=== PATIENT | female | born 1990 | race Caucasian/White ===

== ENCOUNTER → 2019-02-15 | Outpatient (REF) | payer OTHER, MEDICAID | LOC: M LAB REF 17:17 → MERGE 17:17 | PROVIDERS: ATTEND Advanced Practice Midwife | DX: Z34.01 Encounter for supervision of normal first pregnancy, first trimester (principal); Z3A.00 Weeks of gestation of pregnancy not specified ==

== ENCOUNTER → 2019-06-08 | Outpatient (CLI) | payer OTHER ==
[2019-06-08 13:04] LABS: HEMATOCRIT 35.5 % (36.0-47.0); HEMOGLOBIN 11.8 g/dl (12.0-15.5); MEAN CORPUSCULAR HEMOGLOBIN 31.6 pg (27.0-33.0); MEAN CORPUSCULAR HGB CONC 33.2 g/dl (32.0-36.5); MEAN CORPUSCULAR VOLUME 94.9 fl (80.0-96.0); PLATELET COUNT, AUTOMATED 284 10^3/uL (150-450); RED BLOOD COUNT 3.74 10^6/uL (4.00-5.40); WHITE BLOOD COUNT 13.1 10^3/uL (4.0-10.0)
== END ==
LOC: M PLALAB 08:07
PROVIDERS: ATTEND Advanced Practice Midwife
DX: Z36.89 Encounter for other specified antenatal screening (principal)

== ENCOUNTER → 2019-06-15 | Outpatient (CLI) | payer OTHER | LOC: M LAB 07:45 | PROVIDERS: ATTEND Advanced Practice Midwife | DX: Z34.93 Encounter for supervision of normal pregnancy, unspecified, third trimester (principal); Z36.89 Encounter for other specified antenatal screening ==

== ENCOUNTER → 2019-08-13 | Outpatient (REF) | payer OTHER ==
[~2019-08-13] MED LIST: CETI10CA2 PO; CLOB0.0548 TOP; PRENTAB9 PO; PROAAER10 INH
[2019-08-13 17:49] LABS: HEMATOCRIT 37.8 % (36.0-47.0); HEMOGLOBIN 12.8 g/dl (12.0-15.5); MEAN CORPUSCULAR HEMOGLOBIN 31.6 pg (27.0-33.0); MEAN CORPUSCULAR HGB CONC 33.9 g/dl (32.0-36.5); MEAN CORPUSCULAR VOLUME 93.3 fl (80.0-96.0); PLATELET COUNT, AUTOMATED 270 10^3/uL (150-450); RED BLOOD COUNT 4.05 10^6/uL (4.00-5.40)
[2019-08-13 18:14] LABS: CREATININE,RANDOM URINE 29.5 MG/DL; TOTAL PROTEIN,RANDOM URINE 7.5 MG/DL (0.0-12.0)
[2019-08-13 18:16] LABS: ALT/SGPT 18 U/L (12-78); BILIRUBIN,TOTAL 0.2 MG/DL (0.2-1.0); CREATININE FOR GFR 0.51 MG/DL (0.55-1.30); GLOMERULAR FILTRATION RATE > 60.0 (>60); LDH LACTATE DEHYDROGENASE 222 U/L (84-246); URIC ACID 4.6 MG/DL (2.6-6.0)
== END ==
LOC: M PLALAB 12:30
PROVIDERS: ATTEND Advanced Practice Midwife
DX: O14.93 Unspecified pre-eclampsia, third trimester (principal)

== ENCOUNTER 2019-08-16 14:47 | Outpatient (CLI) | payer OTHER ==
[~2019-08-16] VITALS: Ht 157.5 cm; Wt 100.2 kg
[2019-08-16 15:06] VITALS: BP 120/74
[2019-08-16] MEDS ORDERED: PROAAER10 INH (15:18)
[2019-08-16] MEDS ORDERED: CETI10CA2 PO (15:18)
[2019-08-16] MEDS ORDERED: PRENTAB9 PO (15:18)
[2019-08-16] MEDS ORDERED: CLOB0.0548 TOP (15:18)
[2019-08-16 15:29] VITALS: BP 139/86
[2019-08-16 15:40] VITALS: BP 125/76
[2019-08-16 15:55] VITALS: BP 115/71
[2019-08-16 16:05] LABS: CREATININE,RANDOM URINE 55.3 MG/DL; TOTAL PROTEIN,RANDOM URINE 15.8 MG/DL (0.0-12.0)
[2019-08-16 16:11] VITALS: BP 117/73
[2019-08-16 16:20] LABS: HEMATOCRIT 35.9 % (36.0-47.0); HEMOGLOBIN 12.2 g/dl (12.0-15.5); MEAN CORPUSCULAR HEMOGLOBIN 31.1 pg (27.0-33.0); MEAN CORPUSCULAR VOLUME 91.6 fl (80.0-96.0); PLATELET COUNT, AUTOMATED 244 10^3/uL (150-450); RED BLOOD COUNT 3.92 10^6/uL (4.00-5.40); WHITE BLOOD COUNT 14.2 10^3/uL (4.0-10.0)
[2019-08-16 16:28] VITALS: BP 122/75
[2019-08-16 16:43] LABS: ALT/SGPT 16 U/L (12-78); BILIRUBIN,TOTAL 0.1 MG/DL (0.2-1.0); CREATININE FOR GFR 0.47 MG/DL (0.55-1.30); GLOMERULAR FILTRATION RATE > 60.0 (>60); LDH LACTATE DEHYDROGENASE 191 U/L (84-246); URIC ACID 5.5 MG/DL (2.6-6.0)
--- NOTE | 2019-08-17 07:51 | IPNPDOC ---
Obstetrical Progress Note Date of Service Aug 16, 2019 Subjective Patient presents from the clinic for evaluation for elevated BPs. She has had elevated BP for the last two weeks. She denies visual changes, abd pain or headaches. She reports active movement. No vaginal bleeding, LOF or ctx. Objective Vital Signs Date Time Temp Pulse Resp B/P (MAP) Pulse Ox O2 Delivery O2 Flow Rate FiO2 08/16/19 16:28 96 122/75 (91) 08/16/19 15:11 97.5 16 96 Room Air Assessment Heart Rate (FHR): 130 Variability: Moderate Accelerations: Positive Decelerations: None Heart Rate Tracing: Category I Tocometer Contractions: No Assessment and Plan Age: 29 : 1 Weeks & Days 29yo G1 at 37wks with GHTN Reassuring status -home with labor and preeclampsia precautions and FKCs IOL 08/20/19 if remains stable Status: Reassuring LOVE BUNDY MD. Aug 17, 2019 07:51
== END 2019-08-16 18:47 | disposition home or self-care (01) ==
LOC: M LDO 14:47
PROVIDERS: ATTEND Obstetrics & Gynecology
DX: O13.3 Gestational [pregnancy-induced] hypertension without significant proteinuria, third trimester (principal); Z3A.37 37 weeks gestation of pregnancy

== ENCOUNTER 2019-08-22 10:30 | Inpatient (IN) | payer OTHER ==
[~2019-08-22] VITALS: Ht 157.5 cm; Wt 128.7 kg
[2019-08-22] VITALS (11 sets, daily range): BP systolic 116–135; BP diastolic 69–82
[2019-08-22] MEDS ORDERED: CLIN1GEL22 TOP (10:50)
[2019-08-22] MEDS ORDERED: CETI10CA2 PO (10:50)
[2019-08-22] MEDS ORDERED: CALC500C15 PO (10:50)
[2019-08-22] MEDS ORDERED: VALA1TAB5 (10:50)
[2019-08-22 11:31] LABS: HEMATOCRIT 36.7 % (36.0-47.0); HEMOGLOBIN 12.3 g/dl (12.0-15.5); MEAN CORPUSCULAR HEMOGLOBIN 30.6 pg (27.0-33.0); MEAN CORPUSCULAR HGB CONC 33.5 g/dl (32.0-36.5); MEAN CORPUSCULAR VOLUME 91.3 fl (80.0-96.0); PLATELET COUNT, AUTOMATED 262 10^3/uL (150-450); RED BLOOD COUNT 4.02 10^6/uL (4.00-5.40); WHITE BLOOD COUNT 13.9 10^3/uL (4.0-10.0)
[2019-08-22] MEDS: miSOPROStol 50 MCG 1/2 TAB (S0191) SL SCH ×3 (11:48→20:11)
[2019-08-22 11:56] LABS: ALT/SGPT 17 U/L (12-78); BILIRUBIN,TOTAL 0.2 MG/DL (0.2-1.0); CREATININE FOR GFR 0.52 MG/DL (0.55-1.30); GLOMERULAR FILTRATION RATE > 60.0 (>60); LDH LACTATE DEHYDROGENASE 302 U/L (84-246); URIC ACID 5.1 MG/DL (2.6-6.0)
--- NOTE | 2019-08-22 12:47 | HPE ---
DATE OF ADMISSION: 08/22/2019 29-year-old 1, para 0 female at 37-6/7 weeks gestation by 8 week ultrasound, estimated date of confinement (EDC) 09/06/2019, presents for labor induction. Indication for induction is gestational hypertension. She denies headaches or blurred vision. She denies contractions. COURSE: The patient initiated care at [facility]. Early blood pressures were normal. Starting at 36 weeks she had blood pressures 140s over 90s. This persisted for several visits in a row. She had a preeclampsia evaluation which was normal. MEDICAL HISTORY: 1. Mild asthma. 2. Allergic rhinitis. 3. History of chronic hypertension in the past. MEDICATIONS: No current medications. ALLERGIES: None. SURGICAL HISTORY: Raven teeth removal. SOCIAL HISTORY: The patient is . She denies cigarettes, alcohol or drug use. She lives in [place]. PHYSICAL EXAMINATION: Blood pressure 134/75, pulse 84. No apparent distress. Head and neck exam normal. Lungs clear. Heart regular rate and rhythm. Abdomen nontender, gravid. heart tones category 1. Sterile vaginal exam 1 cm, 50%, -2, posterior, moderate, vertex. Extremities nontender. LABORATORIES: Group B Streptococcus (GBS) negative. HIV negative. Hepatitis negative. ASSESSMENT: 29-year-old 1 at 37-6/7 weeks with gestational hypertension presents for labor induction. PLAN: Patient is admitted on 08/22/2019. Risks of induction were discussed.
[2019-08-23] VITALS (16 sets, daily range): BP systolic 106–140; BP diastolic 64–89
[2019-08-23] MEDS ORDERED: ACETAMINOPHEN 500 MG TAB PO ONE (00:30)
[2019-08-23] MEDS: miSOPROStol 50 MCG 1/2 TAB (S0191) SL SCH ×7 (00:41→23:45)
[2019-08-23] MEDS ORDERED: PROMETHAZINE INJ 25 MG/ML VIAL (J2550) IV ONE (01:15)
[2019-08-23] MEDS ORDERED: BUTORPHANOL 2 MG/ML INJ (J0595) IV ONE (01:15)
[2019-08-23] MEDS ORDERED: OXYTOCIN DRIP 30 UNITS in IV 1 EA IV SCH (08:45)
[2019-08-23] MEDS: LR 1,000 ML IV SCH ×2 (11:26→19:00)
[2019-08-23 19:05] LABS: HEMATOCRIT 35.2 % (36.0-47.0); MEAN CORPUSCULAR HEMOGLOBIN 31.2 pg (27.0-33.0); MEAN CORPUSCULAR HGB CONC 34.1 g/dl (32.0-36.5); MEAN CORPUSCULAR VOLUME 91.4 fl (80.0-96.0); PLATELET COUNT, AUTOMATED 238 10^3/uL (150-450); RED BLOOD COUNT 3.85 10^6/uL (4.00-5.40); WHITE BLOOD COUNT 17.1 10^3/uL (4.0-10.0)
--- NOTE | 2019-08-23 19:08 | IPNPDOC ---
Obstetrical Progress Note Date of Service Aug 23, 2019 Subjective Patient reports she can feel her contractions. Desires an epidural prior to AROM. Objective Vital Signs Date Time Temp Pulse Resp B/P (MAP) Pulse Ox O2 Delivery O2 Flow Rate FiO2 08/23/19 15:26 92 16 119/66 (83) 08/23/19 15:12 98.0 08/22/19 14:22 96 08/22/19 10:51 Room Air Assessment Heart Rate (FHR): 140 Variability: Moderate Accelerations: Positive Decelerations: None Heart Rate Tracing: Category I Tocometer Contractions: Yes Frequency: regular, other (2-4 minutes) Sterile Vaginal Examination Dilation: 4 cm Effacement (%): other (75%) Station: -2 Cervical Consistency: Soft Cervical Position: Middle Postion/Presentation: Cephalic presentation Assessment and Plan Age: 29 : 1 Term: 0 Pre-term: 0 Abortions: 0 Livin EGA at Admission: 37.6 Weeks & Days 38 weeks Status: Reassuring Group B Streptococcus: Negative Anticipate: Vaginal Delivery Additional Comments Will repeat CBC. Patient desires an epidural. After she receives her epidural we will consider AROM. IV Pitocin is at 14 mu/min. Continue with IV Pitocin and anesthesia will be consulted. JJ LEVI CNM Aug 23, 2019 19:08
[2019-08-23] MEDS ORDERED: FENTANYL 2MCG/ML ROPIVACAINE 0.2% IN 0.9% NACL 100ML IVBAG As Ordered ONE (19:10)
[2019-08-23] MEDS ORDERED: FENTANYL/ROPIVACAINE/NACL BAG 100 ML EPIDURAL SCH (20:45)
[2019-08-23] MEDS ORDERED: diphenhydrAMINE 50MG/ML VIAL (J1200) IV PRN (20:45)
[2019-08-23] MEDS ORDERED: EPIDURAL/PCA KEYS XX PRN (20:45)
[2019-08-23] MEDS ORDERED: NALOXONE INJ 0.4MG/1ML VIAL (J2310 PER 1MG) IV PRN (20:45)
[2019-08-23] MEDS ORDERED: EPIDURAL COMMENT XX SCH (20:45)
[2019-08-23] MEDS ORDERED: REFRIGERATOR IV KEYS XX PRN (20:45)
[2019-08-23] MEDS ORDERED: LACTATED RINGER'S 1000 ML IV PRN (20:45)
[2019-08-23] MEDS ORDERED: ePHEDrine SULFATE 25 MG/5 ML(5MG/ML) SYRINGE IV PRN (20:45)
[2019-08-23] MEDS ORDERED: ONDANSETRON 4MG/2ML VIAL IV PRN (20:45)
--- NOTE | 2019-08-23 23:39 | IPNPDOC ---
Text Note Date of Service The patient was seen on 08/23/19. NOTE S: Patient comfortable with epidural. O: Gravid, fetus vertex by Zana's maneuver SVE: /-3 FHR: 150 bpm, mod variability, accels no decels, Cat I tracing TOCO: Ctx q 5-7 min A: SIUP at 38.0 weeks EGA admitted for IOL for gHTN. P: GBS negative, no ABX required Epidural in place AROM with clear fluid Anticipate C/S as appropriate VS,Fishbone, I+O VS, Fishbone, I+O Laboratory Tests 08/23/19 18:52 Vital Signs Date Time Temp Pulse Resp B/P (MAP) Pulse Ox O2 Delivery O2 Flow Rate FiO2 08/23/19 15:26 92 16 119/66 (83) 08/23/19 15:12 98.0 08/22/19 14:22 96 08/22/19 10:51 Room Air GME ATTESTATION GME ATTESTATION My faculty preceptor for this patient encounter was physically present during the encounter and was fully available. All aspects of the patient interview, examination, medical decision making process, and medical care plan development were reviewed and approved by the faculty preceptor. The faculty preceptor is aware and concurs with the plan as stated in the body of this note and will attest to such by his/her cosignature. HANSA DOMINGUEZ D.O. Aug 23, 2019 23:38
[2019-08-24] VITALS (8 sets, daily range): BP systolic 106–137; BP diastolic 65–86
[2019-08-24] MEDS: LR 1,000 ML IV SCH ×3 (00:34→17:27)
[2019-08-24] MEDS: miSOPROStol 50 MCG 1/2 TAB (S0191) SL SCH (03:45)
--- NOTE | 2019-08-24 04:23 | IPNPDOC ---
Obstetrical Progress Note Date of Service Aug 24, 2019 Subjective Patient reports she is comfortable with her epidural. Objective Vital Signs Date Time Temp Pulse Resp B/P (MAP) Pulse Ox O2 Delivery O2 Flow Rate FiO2 08/23/19 15:26 92 16 119/66 (83) 08/23/19 15:12 98.0 08/22/19 14:22 96 08/22/19 10:51 Room Air Assessment Heart Rate (FHR): 135 Variability: Moderate Accelerations: Positive Decelerations: None Heart Rate Tracing: Category I Tocometer Contractions: Yes Frequency: regular, other (2-4 minutes) Sterile Vaginal Examination Dilation: 4 cm (4) Effacement (%): other (75%) Station: -2 Cervical Consistency: Soft Cervical Position: Anterior Postion/Presentation: Cephalic presentation Assessment and Plan Age: 29 Weeks & Days 38 weeks today Status: Reassuring Group B Streptococcus: Negative Additional Comments IUPC placed. Reviewed no change with patient. Will re-examine in 2 hours and if adequate contractions and no change we will proceed with a section. Patient verbalized understanding. JJ LEVI CNM Aug 24, 2019 04:23
[2019-08-24] MEDS ORDERED: BICITRA 30ML SOLN UDC As Ordered ONE (06:52)
[2019-08-24] MEDS ORDERED: ceFAZolin 2 GM/D5W 50 ML IV BAG (J0690 PER 500MG) As Ordered ONE (06:53)
[2019-08-24] MEDS ORDERED: BICITRA 30ML SOLN UDC PO ONE (07:00)
[2019-08-24] MEDS ORDERED: AZITHROMYCIN INJ 500 MG, VIAL MATE ADAPTER 1 EACH in D5W 250 ML IV ONE (07:00)
[2019-08-24] MEDS ORDERED: ceFAZolin SOD 2 GM in IV 1 EA IV ONE (07:00)
--- NOTE | 2019-08-24 07:05 | IPNPDOC ---
Obstetrical Progress Note Date of Service Aug 24, 2019 Subjective Patient is comfortable with her epidural. Objective Vital Signs Date Time Temp Pulse Resp B/P (MAP) Pulse Ox O2 Delivery O2 Flow Rate FiO2 08/23/19 15:26 92 16 119/66 (83) 08/23/19 15:12 98.0 08/22/19 14:22 96 08/22/19 10:51 Room Air Assessment Heart Rate (FHR): 140 Variability: Moderate Accelerations: Positive Decelerations: None Heart Rate Tracing: Category I Tocometer Contractions: Yes Frequency: regular Assessment and Plan Status: Reassuring Anticipate: Section Additional Comments No change in cervical examination. Reviewed recommendation of section due to no change after more than [address] Rainey notified of lack of cervical change and will be in to see patient. JJ LEVI CNM Aug 24, 2019 07:05
[2019-08-24] MEDS ORDERED: OXYTOCIN INJ 10 UNITS/ML VIAL (J2590) As Ordered ONE (07:07)
[2019-08-24] MEDS ORDERED: MORPHINE PRES-FREE INJ 10 MG/10 ML VIAL (J2274) As Ordered ONE (07:08)
[2019-08-24] MEDS ORDERED: LIDOCAINE 2% W/EPIN INJ 20ML **PRES FREE As Ordered ONE (07:12)
[2019-08-24] MEDS ORDERED: LIDOCAINE 1% MDV 20ML VIAL As Ordered ONE (08:00)
[2019-08-24] MEDS ORDERED: NALBUPHINE HCL 10 MG/ML AMP (J2300) IV PRN (08:03)
[2019-08-24] MEDS ORDERED: METOCLOPRAMIDE INJ 10MG/2ML VIAL (J2765 PER 1) IV PRN (08:03)
[2019-08-24] MEDS ORDERED: ONDANSETRON 4MG/2ML VIAL IV PRN ×2 (08:03→09:15)
[2019-08-24] MEDS ORDERED: diphenhydrAMINE 50MG/ML VIAL (J1200) IV PRN (08:03)
[2019-08-24] MEDS ORDERED: NALOXONE INJ 0.4MG/1ML VIAL (J2310 PER 1MG) IV PRN ×2 (08:03)
[2019-08-24] MEDS ORDERED: KETAMINE HCL 200 MG/20 ML VIAL As Ordered ONE (08:08)
[2019-08-24] MEDS ORDERED: MIDAZOLAM INJ 2MG/2ML VIAL (J2250 PER 1MG) As Ordered ONE (08:08)
[2019-08-24] MEDS ORDERED: KETOROLAC 60 MG/2 ML VIAL As Ordered ONE (08:30)
[2019-08-24] MEDS ORDERED: OXYTOCIN DRIP 30 UNITS in IV 1 EA IV SCH (08:40)
[2019-08-24] MEDS ORDERED: MEASLES,MUMPS,RUBELLA VACCINE INJ (MMR-II) (90707) SC SCH (08:45)
[2019-08-24] MEDS ORDERED: ONDANSETRON 4 MG TAB PO PRN (08:45)
[2019-08-24] MEDS ORDERED: RHOGAM 300 MCG (1500 IU) INJ (J2790) IM SCH (08:45)
[2019-08-24] MEDS ORDERED: DOCUSATE SODIUM 100 MG CAP PO PRN (08:45)
[2019-08-24] MEDS: PRENATAL VITAMINS CHEWABLE TABLET PO SCH (09:00)
[2019-08-24] MEDS ORDERED: OXYTOCIN 30 UNITS IN 0.9% NaCl 500ML IV BAG (J2590) As Ordered ONE (09:10)
[2019-08-24] MEDS ORDERED: fentaNYL 100 MCG/2 ML INJECTION (J3010) IV PRN (09:15)
[2019-08-24] MEDS ORDERED: LIDOCAINE 1% MDV 20ML VIAL SC ONE (09:15)
--- NOTE | 2019-08-24 09:22 | RO ---
DATE OF OPERATION: 08/24/2019 PREOPERATIVE DIAGNOSIS: 38 weeks, preeclampsia, arrest of dilation. POSTOPERATIVE DIAGNOSIS: 38 weeks, preeclampsia, arrest of dilation. PROCEDURE: Primary low transverse section. SURGEON: Hank Rainey MD MATERIAL EXPEDITER: Michaela Chapman CNM ANESTHESIA: Epidural plus local. ESTIMATED BLOOD LOSS: 500 mL. URINE OUTPUT: 150 mL. FINDINGS: 2850-gram or 6-pound 5-ounce female infant, scores 9 and 9. Occiput posterior with anterior asynclitism. Normal uterus, fallopian tubes, and ovaries. DESCRIPTION OF PROCEDURE: Operative summary: The patient taken to the operating room, where epidural anesthesia was found to be slightly inadequate on the right side. The patient received a total of 20 mL of 1% lidocaine injected into the subcutaneous and intramuscular tissue. A Pfannenstiel skin incision made with the scalpel and carried through to the fascia. The fascia was nicked and extended. The fascia was dissected off the rectus muscle. The peritoneal cavity was entered. The bladder flap was created. A Mobius retractor was placed. A curvilinear incision was made in the lower uterine segment. This was extended manually. Clear fluid was noted. The was delivered in the vertex position without difficulty. The cord was doubly clamped and cut. The infant was handed off to the awaiting nurses. The placenta was expressed. The uterus was closed with 0 Vicryl in a running locked fashion. A second imbricating layer of 0 Vicryl was placed. The peritoneum was closed with 2-0 Vicryl in a running fashion. The fascia was closed with 0 Vicryl. The deep layer was irrigated and closed with 2-0 chromic. The skin was closed with 4-0 Monocryl subcuticular sutures. Sponge, instrument, and needle counts were correct. Michaela Chapman CNM, assisted throughout the procedure. She was indispensable for the successful performance of the procedure. She helped create each layer of the incision. She helped deliver the fetus and close all subsequent layers.
[2019-08-24] MEDS: PERCOCET 5MG/325MG TAB PO PRN (10:42)
[2019-08-24] MEDS: KETOROLAC 30 MG/ML 1ML VIAL IV SCH ×2 (14:46→21:13)
[2019-08-25 02:30] VITALS: BP 111/72
[2019-08-25] MEDS: KETOROLAC 30 MG/ML 1ML VIAL IV SCH (03:02)
[2019-08-25 06:10] VITALS: BP 114/68
[2019-08-25] MEDS ORDERED: OXYC1TAB23 PO (07:00)
[2019-08-25] MEDS ORDERED: IBUP80TA PO (07:00)
--- NOTE | 2019-08-25 07:11 | DSES ---
DATE OF ADMISSION: 08/22/2019 DATE OF DISCHARGE: HISTORY: 29-year-old, (G) 1, para (P) 0, female at 37 and 6/7 weeks gestation who presented for labor induction with the indication of gestational hypertension. She denied headaches. HOSPITAL COURSE: The patient was admitted on 08/22/2019. She had induction initiated with misoprostol. She subsequently had a Cook catheter placed in her cervix. After a prolonged effort, she was diagnosed with arrest of dilation. On 08/24/2019, she underwent primary low transverse section for a 6 pound 5 ounce female infant. The procedure was uncomplicated. She had adequate return of bladder and bowel function. Her postoperative hemoglobin was stable. She was deemed stable for discharge on postoperative day #2. ADMISSION DIAGNOSIS: at 38 weeks. Hypertension. DISCHARGE DIAGNOSIS: Delivered. PROCEDURE: Primary low transverse section. DISPOSITION: Patient to followup with Dr. Rainey in 2 weeks. Instructions reviewed.
[2019-08-25 08:30] LABS: HEMATOCRIT 27.6 % (36.0-47.0); HEMOGLOBIN 9.4 g/dl (12.0-15.5); MEAN CORPUSCULAR HEMOGLOBIN 31.6 pg (27.0-33.0); MEAN CORPUSCULAR HGB CONC 34.1 g/dl (32.0-36.5); MEAN CORPUSCULAR VOLUME 92.9 fl (80.0-96.0); PLATELET COUNT, AUTOMATED 192 10^3/uL (150-450); RED BLOOD COUNT 2.97 10^6/uL (4.00-5.40); WHITE BLOOD COUNT 17.4 10^3/uL (4.0-10.0)
[2019-08-25] MEDS: PERCOCET 5MG/325MG TAB PO PRN ×3 (09:48→20:44)
[2019-08-25] MEDS: PRENATAL VITAMINS CHEWABLE TABLET PO SCH (09:48)
[2019-08-25] MEDS: IBUPROFEN 800 MG TAB PO SCH ×2 (10:03→18:36)
[2019-08-25 18:12] VITALS: BP 131/83
[2019-08-25 21:18] VITALS: BP 120/69
[2019-08-26] MEDS: IBUPROFEN 800 MG TAB PO SCH ×2 (03:05→11:21)
[2019-08-26 05:52] VITALS: BP 140/87
[2019-08-26] MEDS: PERCOCET 5MG/325MG TAB PO PRN (05:52)
--- NOTE | 2019-08-26 08:24 | DSES ---
DATE OF ADMISSION: 08/22/2019 DATE OF DISCHARGE: 08/26/2019 SURGEON: Dr. Hank Rainey DIAGNOSIS: Primary section, postop day #2, stable condition. HISTORY: Carson is 29-year-old 1, para 1-0-0-1 now who underwent induction of labor at 37-6/7 weeks due to gestational hypertension. HOSPITAL COURSE: She was admitted on 08/21. She had induction initiated with misoprostol, Cook's catheter to the cervix, IV Pitocin and after prolonged effort, she was diagnosed with arrest of dilation. She underwent a primary section on 08/24/2019. She delivered a 6 pounds 5 ounces female. The procedure was uncomplicated. Her bladder and bowel function has returned. Postoperative hemoglobin is stable. She has been deemed stable for discharge on postop day #2. PLAN: Reviewed discharge instructions that included breast care, incision care, yevgeniy care, pelvic rest, activity and lifting restrictions, danger signs to report, as well as access to her care provider. She is to follow up in 2 weeks for incision check at [facility], as well as an 8-week visit. All her questions answered and she desires discharge home. edited: 08/27/2019 [id number]
[2019-08-26] MEDS: PRENATAL VITAMINS CHEWABLE TABLET PO SCH (09:00)
== END 2019-08-26 13:20 | disposition home or self-care (01) | DRG 540 ==
LOC: M LDI 10:30 → M OBS 08-24 09:47
PROVIDERS: ADMIT Specialist; ATTEND Specialist
PROC: 3E033VJ Introduction of Other Hormone into Peripheral Vein, Percutaneous Approach (ICD-10-PCS; 2019-08-22)
PROC: 10D00Z1 Extraction of Products of Conception, Low, Open Approach (ICD-10-PCS; principal; 2019-08-24 07:30)
DX: O14.94 Unspecified pre-eclampsia, complicating childbirth (principal); O62.0 Primary inadequate contractions; Z37.0 Single live birth; Z3A.38 38 weeks gestation of pregnancy

== ENCOUNTER → 2020-10-18 | Outpatient (REF) | payer OTHER ==
[~2020-10-18] MED LIST changes: +CALC500C15 PO; +CLIN1GEL22 TOP; +IBUP80TA PO; +OXYC1TAB23 PO; +VALA1TAB5
== END ==
LOC: M SFHCWAGY 13:11
PROVIDERS: ATTEND Specialist
DX: Z01.419 Encounter for gynecological examination (general) (routine) without abnormal findings (principal)

== ENCOUNTER → 2021-07-17 | Outpatient (REF) | payer OTHER ==
[2021-07-17 15:56] LABS: BASO # 0.1 10^3/uL (0.0-0.2); BASO % 0.6 % (0.0-1.0); EOS # 0.1 10^3/uL (0.0-0.5); EOS % 1.4 % (0.0-3.0); HEMATOCRIT 41.2 % (36.0-47.0); HEMOGLOBIN 13.6 g/dl (12.0-15.5); LYMPH # 3.2 10^3/uL (1.5-5.0); LYMPH % 32.6 % (24.0-44.0); MEAN CORPUSCULAR HEMOGLOBIN 30.2 pg (27.0-33.0); MEAN CORPUSCULAR VOLUME 91.6 fl (80.0-96.0); MONO # 0.6 10^3/uL (0.0-0.8); MONO % 6.3 % (2.0-8.0); NEUTROPHILS # 5.7 10^3/uL (1.5-8.5); NEUTROPHILS % 58.8 % (36.0-66.0); PLATELET COUNT, AUTOMATED 295 10^3/uL (150-450); WHITE BLOOD COUNT 9.7 10^3/uL (4.0-10.0)
[2021-07-17 16:41] LABS: ALT/SGPT 29 U/L (12-78); BILIRUBIN,TOTAL 0.1 MG/DL (0.2-1.0); BLOOD UREA NITROGEN 12 MG/DL (7-18); CALCIUM LEVEL 8.3 MG/DL (8.5-10.1); CARBON DIOXIDE LEVEL 22 MEQ/L (21-32); CHLORIDE LEVEL 111 MEQ/L (98-107); CHOLESTEROL LEVEL 135 MG/DL (<200); CHOLESTEROL RISK RATIO 2.142 (<5); CREATININE FOR GFR 0.64 MG/DL (0.55-1.30); GLOMERULAR FILTRATION RATE > 60.0 (>60); GLUCOSE, FASTING 73 MG/DL (70-100); HDL CHOLESTEROL 63 MG/DL (>40); LDL CHOLESTEROL 57 MG/DL (<100); NON-HDL-C 72 MG/DL; POTASSIUM SERUM 4.4 MEQ/L (3.5-5.1); SODIUM LEVEL 139 MEQ/L (136-145); TOTAL 25(OH) VITAMIN D 15.1 NG/ML (30.0-100.0); TOTAL PROTEIN 6.8 GM/DL (6.4-8.2); TRIGLYCERIDES LEVEL 73 MG/DL (<150)
== END ==
LOC: M SFHCCAPE 07:17
PROVIDERS: ATTEND Physician Assistant
DX: Z00.00 Encounter for general adult medical examination without abnormal findings (principal)

== ENCOUNTER → 2022-01-23 | Outpatient (REF) | payer BC ==
[2022-01-23 18:43] LABS: BASO # 0.1 10^3/uL (0.0-0.2); BASO % 0.6 % (0.0-1.0); EOS # 0.3 10^3/uL (0.0-0.5); EOS % 2.9 % (0.0-3.0); HEMATOCRIT 42.5 % (36.0-47.0); LYMPH # 2.7 10^3/uL (1.5-5.0); LYMPH % 28.7 % (24.0-44.0); MEAN CORPUSCULAR HEMOGLOBIN 30.6 pg (27.0-33.0); MEAN CORPUSCULAR HGB CONC 32.9 g/dl (32.0-36.5); MEAN CORPUSCULAR VOLUME 92.8 fl (80.0-96.0); MONO # 0.4 10^3/uL (0.0-0.8); MONO % 4.7 % (2.0-8.0); NEUTROPHILS # 5.8 10^3/uL (1.5-8.5); NEUTROPHILS % 62.8 % (36.0-66.0); PLATELET COUNT, AUTOMATED 327 10^3/uL (150-450); RED BLOOD COUNT 4.58 10^6/uL (4.00-5.40); WHITE BLOOD COUNT 9.3 10^3/uL (4.0-10.0)
[2022-01-23 19:26] LABS: BLOOD UREA NITROGEN 15 MG/DL (7-18); CALCIUM LEVEL 8.8 MG/DL (8.5-10.1); CARBON DIOXIDE LEVEL 21 MEQ/L (21-32); CHLORIDE LEVEL 105 MEQ/L (98-107); CREATININE FOR GFR 0.67 MG/DL (0.55-1.30); GLOMERULAR FILTRATION RATE > 60.0 (>60); GLUCOSE, FASTING 78 MG/DL (70-100); POTASSIUM SERUM 4.4 MEQ/L (3.5-5.1); SODIUM LEVEL 134 MEQ/L (136-145)
[2022-01-23 20:05] LABS: APPEARANCE, URINE MANUAL CLEAR (CLEAR); COLOR, URINE MANUAL YELLOW (YELLOW)
[2022-01-23 20:08] LABS: BILIRUBIN, URINE MANUAL NEGATIVE (NEGATIVE); BLOOD URINE MANUAL POSITIVE (NEGATIVE); GLUCOSE, URINE (UA) MANUAL NEGATIVE (NEGATIVE); KETONE, URINE MANUAL NEGATIVE (NEGATIVE); LEUKOCYTE ESTERASE, URINE MAN NEGATIVE (NEGATIVE); NITRITE, URINE MANUAL NEGATIVE (NEGATIVE); PH,URINE MAN 6.5 UNITS (5.0 - 7.0); PROTEIN, URINE MANUAL NEGATIVE (NEGATIVE); SPECIFIC GRAVITY,URINE MANUAL 1.015 (1.002-1.035); UROBILINOGEN, URINE MANUAL NORMAL (NORMAL)
[2022-01-23 20:22] LABS: BACTERIA, URINE SMALL AMOUNT; HYALINE CAST, URINE NONE SEEN /lpf (0-1); MUCUS, URINE SMALL AMOUNT (NEGATIVE); SQUAMOUS EPITHELIAL CELL URINE SMALL AMOUNT /hpf (SMALL AMT); WBC, URINE 0-1 /hpf (0-3)
== END ==
LOC: M SFHCCAPE 08:44
PROVIDERS: ATTEND Physician Assistant
DX: R55 Syncope and collapse (principal)

== ENCOUNTER → 2022-02-19 | Outpatient (REF) | payer BC ==
[2022-02-19 18:20] LABS: APPEARANCE, URINE MANUAL CLEAR (CLEAR); BILIRUBIN, URINE MANUAL NEGATIVE (NEGATIVE); BLOOD URINE MANUAL NEGATIVE (NEGATIVE); COLOR, URINE MANUAL COLORLESS (YELLOW); GLUCOSE, URINE (UA) MANUAL NEGATIVE (NEGATIVE); KETONE, URINE MANUAL NEGATIVE (NEGATIVE); LEUKOCYTE ESTERASE, URINE MAN NEGATIVE (NEGATIVE); NITRITE, URINE MANUAL NEGATIVE (NEGATIVE); PROTEIN, URINE MANUAL NEGATIVE (NEGATIVE); SPECIFIC GRAVITY,URINE MANUAL 1.005 (1.002-1.035); UROBILINOGEN, URINE MANUAL NORMAL (NORMAL)
== END ==
LOC: M SFHCCAPE 11:25
PROVIDERS: ATTEND Physician Assistant
DX: R42 Dizziness and giddiness (principal)

== ENCOUNTER → 2022-07-29 | Outpatient (REF) | payer BC | LOC: M SFHCWAGY 13:06 | PROVIDERS: ATTEND Nurse Practitioner Family | DX: Z12.4 Encounter for screening for malignant neoplasm of cervix (principal) | CPT/HCPCS: 87624; G0123 ==

== ENCOUNTER 2023-01-06 09:58 | Day surgery (SDC) | payer BC ==
[~2023-01-06] VITALS: Ht 157.5 cm; Wt 83.0 kg
[~2023-01-06 09:58] MED LIST changes: +L-NO1TBD6; +LEXA1TAB PO; +LISI10TA22 PO
[2023-01-06 10:26] LABS: HEMATOCRIT 42.9 % (36.0-47.0); HEMOGLOBIN 14.2 g/dl (12.0-15.5); MEAN CORPUSCULAR HEMOGLOBIN 30.3 pg (27.0-33.0); MEAN CORPUSCULAR HGB CONC 33.1 g/dl (32.0-36.5); MEAN CORPUSCULAR VOLUME 91.5 fl (80.0-96.0); PLATELET COUNT, AUTOMATED 307 10^3/uL (150-450); RED BLOOD COUNT 4.69 10^6/uL (4.00-5.40); WHITE BLOOD COUNT 8.1 10^3/uL (4.0-10.0)
[2023-01-06] MEDS ORDERED: ROCURONIUM BROMIDE 50MG/5ML VIAL As Ordered ONE (13:06)
[2023-01-06] MEDS ORDERED: LIDOCAINE 2% 100MG/5ML SDV (FOR ANES.) As Ordered ONE (13:06)
[2023-01-06] MEDS ORDERED: fentaNYL 100 MCG/2 ML INJECTION As Ordered ONE (13:06)
[2023-01-06] MEDS ORDERED: ONDANSETRON 4MG 2ML VIAL As Ordered ONE (13:06)
[2023-01-06] MEDS ORDERED: MIDAZOLAM INJ 2MG/2ML VIAL As Ordered ONE (13:06)
[2023-01-06] MEDS ORDERED: propofoL 200 MG/20 ML VIAL As Ordered ONE (13:06)
[2023-01-06] MEDS ORDERED: OXYC1TAB23 PO (13:42)
[2023-01-06] MEDS ORDERED: IBUP-1022 PO (13:42)
[2023-01-06] MEDS ORDERED: ACETAMINOPHEN 1000MG 100ML IV BAG As Ordered ONE ×3 (14:53→15:01)
[2023-01-06] MEDS ORDERED: ALBUTEROL 6.7GM INHALER **FOR ANES. CART/OMNICELL ONLY As Ordered ONE (15:01)
[2023-01-06] MEDS ORDERED: KETOROLAC 60MG 2ML VIAL As Ordered ONE (15:13)
[2023-01-06] MEDS ORDERED: SUGAMMADEX SODIUM 500 MG/5 ML VIAL (BRIDION) As Ordered ONE (15:13)
[2023-01-06] MEDS ORDERED: HYDROMORPHONE HCL 0.5 MG/ 0.5 ML SYRINGE IV PRN (15:40)
[2023-01-06] MEDS ORDERED: LR 1,000 ML IV SCH ×2 (15:40→16:50)
[2023-01-06] MEDS ORDERED: fentaNYL 100 MCG/2 ML INJECTION IV PRN (15:40)
[2023-01-06] MEDS ORDERED: ONDANSETRON 4MG 2ML VIAL IV PRN (15:40)
[2023-01-06] MEDS ORDERED: oxyCODONE 5MG TAB PO PRN (15:40)
[2023-01-06] MEDS ORDERED: PERCOCET 5MG/325MG TAB PO PRN (16:50)
[2023-01-06 16:58] VITALS: BP 120/76; TEMP 98.6; O2SAT 100
== END 2023-01-06 17:15 | disposition home or self-care (01) ==
LOC: M SDC 09:58
PROVIDERS: ATTEND Specialist
DX: Z30.2 Encounter for sterilization (principal); I10 Essential (primary) hypertension; L30.9 Dermatitis, unspecified; L40.9 Psoriasis, unspecified; F41.9 Anxiety disorder, unspecified; J45.909 Unspecified asthma, uncomplicated; Z87.891 Personal history of nicotine dependence; Z79.3 Long term (current) use of hormonal contraceptives; Z79.899 Other long term (current) drug therapy
CPT/HCPCS: 36415; 58661; 81025; 85027; 88302; J0131; J0665; J1100; J1885; J2250; J2405; J3010

== ENCOUNTER → 2023-09-02 | Outpatient (REF) | payer BC ==
[~2023-09-02] MED LIST changes: +IBUP-1022 PO
[2023-09-02 18:29] LABS: ALBUMIN 3.5 G/DL (3.2-5.2); ALKALINE PHOSPHATASE 105 U/L (46-116); ALT/SGPT 37 U/L (7.0-40); AST/SGOT 23 U/L (<34); BILIRUBIN,TOTAL 0.6 MG/DL (0.3-1.2); BLOOD UREA NITROGEN 16 MG/DL (9-23); CALCIUM LEVEL 8.9 MG/DL (8.5-10.1); CARBON DIOXIDE LEVEL 21 MMOL/L (20-31); CHLORIDE LEVEL 104 MMOL/L (98-107); CREATININE FOR GFR 0.62 MG/DL (0.55-1.30); GLOMERULAR FILTRATION RATE > 60.0 (>60); GLUCOSE, FASTING 128 MG/DL (60-100); POTASSIUM SERUM 4.3 MMOL/L (3.5-5.1); SODIUM LEVEL 135 MMOL/L (136-145); TOTAL PROTEIN 7.1 G/DL (5.7-8.2)
== END ==
LOC: M SFHCCAPE 07:45
PROVIDERS: ATTEND Physician Assistant Medical
DX: I10 Essential (primary) hypertension (principal)